=== PATIENT | male | born 1965 | race Caucasian/White ===

== ENCOUNTER → 2018-05-11 | Day surgery (SDC) | payer MEDICARE ==
[2018-05-04 13:25] LABS: APPEARANCE,URINE CLEAR; BILIRUBIN,URINE NEGATIVE (NEGATIVE); COLOR,URINE STRAW; GLUCOSE, URINE NEGATIVE (NEGATIVE); KETONES,URINE NEGATIVE (NEGATIVE); LEUKOCYTE ESTERASE,URINE NEGATIVE (NEGATIVE); NITRITE,URINE NEGATIVE (NEGATIVE); PROTEIN,URINE NEGATIVE (NEGATIVE); URINE SPECIFIC GRAVITY 1.006; UROBILINOGEN,URINE NEGATIVE mg/dL (<2.0)
[2018-05-04 14:08] LABS: HEMATOCRIT 35.6 % (37.9-51.0); HEMOGLOBIN 11.9 g/dL (13.5-17.0); MEAN CORPUSCULAR HEMOGLOBIN 27.8 pg (27.0-33.4); MEAN CORPUSCULAR HGB CONC 33.5 g/dL (32.0-36.0); MEAN CORPUSCULAR VOLUME 83 fl (80-97); PLATELET COUNT 275 10^3/uL (150-450); RED BLOOD COUNT 4.28 10^6/uL (4.35-5.55); RED CELL DISTRIBUTION WIDTH 17.3 % (11.5-14.0); WHITE BLOOD COUNT 7.1 10^3/uL (4.0-10.5)
[2018-05-04 14:15] LABS: INTERNATIONAL RATION (INR) 0.86; PARTIAL THROMBOPLASTIN TIME 33.2 SEC (23.5-35.8); PROTHROMBIN TIME 12.2 SEC (11.4-15.4)
--- NOTE | 2018-05-04 19:56 | EKG REPORT ---
SEVERITY:- ABNORMAL ECG - SINUS RHYTHM LEFT ANTERIOR FASCICULAR BLOCK : Confirmed by: Jimmy Holbrook MD 04-May-2018 19:56:24
[~2018-05-11] MED LIST: CEFAZOLIN 1 GM/D5W RTU 1 GM/50 ML RTUPB IV PRN; FENTANYL CITRATE INJ/PF 100 MCG/2 ML AMPUL ONE; LACTATED RINGERS 1000 ML IV PRN; LIDOCAINE 0.5% INJ-PF (5 MG/ML) 50 ML SDV SUBCUT PRN; LIDOCAINE 1% INJ-PF (10 MG/ML) 30 ML SDV ONE; LIDOCAINE 2% INJ-PF (100 MG/5 ML) SYRINGE ONE; MIDAZOLAM 2 MG/2 ML INJ ONE; ONDANSETRON HCL INJ/PF 4 MG/2 ML SDV ONE; PROPOFOL INJ 200 MG/20 ML VIAL IV ONE
[2018-05-11 11:23] VITALS: BP 153/89
== END ==
LOC: OROUT 10:28
PROVIDERS: ATTEND Student in an Organized Health Care Education/Training Program
DX: S22.080A Wedge compression fracture of T11-T12 vertebra, initial encounter for closed fracture (principal); X58.XXXA Exposure to other specified factors, initial encounter; I44.4 Left anterior fascicular block; Z53.9 Procedure and treatment not carried out, unspecified reason; Z79.01 Long term (current) use of anticoagulants
CPT/HCPCS: 93005; 36415; 85027; 85610; 85730; 81001; 93010; J0690; J2001; J2250; J2405; J2704; J3010; J3490

== ENCOUNTER 2018-06-08 08:37 | Day surgery (SDC) | payer MEDICARE ==
[2018-06-07 11:03] LABS: HEMATOCRIT 37.1 % (37.9-51.0); HEMOGLOBIN 12.3 g/dL (13.5-17.0); MEAN CORPUSCULAR HGB CONC 33.1 g/dL (32.0-36.0); MEAN CORPUSCULAR VOLUME 88 fl (80-97); PLATELET COUNT 312 10^3/uL (150-450); RED BLOOD COUNT 4.23 10^6/uL (4.35-5.55); WHITE BLOOD COUNT 6.5 10^3/uL (4.0-10.5)
[2018-06-07 11:21] LABS: INTERNATIONAL RATION (INR) 0.85
[2018-06-07 11:22] LABS: PARTIAL THROMBOPLASTIN TIME 34.7 SEC (23.5-35.8)
[2018-06-07 11:34] LABS: APPEARANCE,URINE CLEAR; BILIRUBIN,URINE NEGATIVE (NEGATIVE); COLOR,URINE STRAW; GLUCOSE, URINE NEGATIVE (NEGATIVE); KETONES,URINE NEGATIVE (NEGATIVE); LEUKOCYTE ESTERASE,URINE NEGATIVE (NEGATIVE); NITRITE,URINE NEGATIVE (NEGATIVE); PROTEIN,URINE NEGATIVE (NEGATIVE); URINE SPECIFIC GRAVITY 1.004; UROBILINOGEN,URINE NEGATIVE mg/dL (<2.0)
[2018-06-07 11:36] LABS: ANION GAP 11 (5-19); BLOOD UREA NITROGEN 15 mg/dL (7-20); CALCIUM 9.4 mg/dL (8.4-10.2); CARBON DIOXIDE 24 mmol/L (22-30); CHLORIDE 103 mmol/L (98-107); GLUCOSE 105 mg/dL (75-110); POTASSIUM 5.1 mmol/L (3.6-5.0); SODIUM 137.8 mmol/L (137-145)
--- NOTE | 2018-06-07 16:08 | EKG REPORT ---
SEVERITY:- ABNORMAL ECG - SINUS RHYTHM LEFT ANTERIOR FASCICULAR BLOCK BORDERLINE R WAVE PROGRESSION, ANTERIOR LEADS : Confirmed by: Sami Mathews 07-Jun-2018 16:07:14
[~2018-06-08 08:37] MED LIST changes: -FENTANYL CITRATE INJ/PF 100 MCG/2 ML AMPUL ONE; -LACTATED RINGERS 1000 ML IV PRN; -LIDOCAINE 2% INJ-PF (100 MG/5 ML) SYRINGE ONE; -MIDAZOLAM 2 MG/2 ML INJ ONE; -ONDANSETRON HCL INJ/PF 4 MG/2 ML SDV ONE; -PROPOFOL INJ 200 MG/20 ML VIAL IV ONE; +RINGERS SOLUTION,LACTATED 1,000 ML IV PRN
[2018-06-08] MEDS ORDERED: CEFAZOLIN 1 GM/D5W RTU 1 GM/50 ML RTUPB IV ONE (09:04)
[2018-06-08] MEDS ORDERED: FENTANYL CITRATE INJ/PF 100 MCG/2 ML AMPUL ONE (09:19)
[2018-06-08] MEDS ORDERED: PROPOFOL INJ 200 MG/20 ML VIAL IV ONE (09:20)
[2018-06-08] MEDS ORDERED: MIDAZOLAM 2 MG/2 ML INJ ONE (09:20)
[2018-06-08] MEDS ORDERED: FENTANYL CITRATE INJ/PF 100 MCG/2 ML AMPUL IV PRN ×3 (10:05)
[2018-06-08] MEDS: FENTANYL CITRATE INJ/PF 100 MCG/2 ML AMPUL ONE ×2 (10:35→10:40)
[2018-06-08] MEDS ORDERED: CEFAZOLIN INJ 1 GM VIAL ONE (10:37)
[2018-06-08] MEDS ORDERED: HYDROCODONE/ACETAMINOPHEN 5-325 MG TABLET PO PRN (10:44)
--- NOTE | 2018-06-08 10:50 | OPERATIVE REPORT E ---
Operative Report NAME: ELIJAH YEPEZ : 1965 AGE: 52Y DATE OF SURGERY: 06/08/2018 ROOM: PREOPERATIVE DIAGNOSIS: Vertebral compression fracture at T11. POSTOPERATIVE DIAGNOSIS: Vertebral compression fracture at T11. PROCEDURE PERFORMED: Balloon kyphoplasty. SURGEON: JOSEPH SABA M.D. HAND COREMAKER: None. ANESTHESIA: MAC. COMPLICATIONS: None. PROCEDURE: After obtaining informed consent advising the patient of the risks and benefits, including serious neurological injury, bleeding, infection, paralysis, allergic reaction, , or failure to adequately treat pain, he was taken to the operating room suite. He was placed comfortably in a prone position as determined by Anesthesia. He was prepped and draped. The C-arm was brought in for lateral AP visualization and draped appropriately. Beginning at the T11 level using a left peripedicular approach a suitable skin entry site was identified and anesthetized with 1% lidocaine with bicarb. A small incision was made. Express trocar was then advanced under C-arm fluoroscopic views in AP and lateral position, entering in the peripedicular approach and medializing after passing into the vertebral body, positioned medial to the medial pedicular wall. The drill was then placed and removed followed by the balloon. The procedure was then proceeded using the right peripedicular approach at the T11 level. After placement of the balloons, once the balloons were adequately inflated and sufficiently inflated, the cement mixture was then mixed and using the filler sheath beginning at the T11 level, filling was performed. A total of 2.4 mL of mixture were placed on the left side and stopped after lateral extravasation. Another 2 mL was placed on the right side with no extravasation. The T11 level had a total of 4.4 mL. After the filler tubes were removed stylettes were placed into the trocars. The cement was allowed to harden prior to removing the trocars. The region was cleansed. Sterile dressings were placed. The patient was taken to the PACU for further postoperative care and monitoring. DICTATING PHYSICIAN: JOSEPH SABA M.D. [id number] PHY#: [id number] ID: [id number] JOB#: [id number] ACCT: [id number] cc:JOSEPH SABA M.D. >
[2018-06-08] MEDS ORDERED: HYDROCODONE/ACETAMINOPHEN 5-325 MG TABLET ONE (11:23)
--- NOTE | 2018-06-08 12:10 | RADIOLOGY REPORT (SQ) ---
EXAM DESCRIPTION: T SPINE AP/LAT; NO CHG FLUORO COMPLETED DATE/TIME: 06/08/2018 11:06 am REASON FOR STUDY: KYPHO S22.088A OTH FRACTURE OF T11-T12 VERTEBRA, INIT FOR CLOS FX Z79.01 LONG TE RM (CURRENT) USE OF ANTICOAGULANTS COMPARISON: None. FLUOROSCOPY TIME: 3.7 minutes 33 digital images saved to PACS. TECHNIQUE: Intra-operative images acquired during surgical procedure to evaluate progress. NUMBER OF IMAGES: 33 digital fluoro images LIMITATIONS: None. FINDINGS: Intra procedural imaging and fluoro during kyphoplasty. Please see the operative report f or further details IMPRESSION: Intra procedural imaging and fluoro during kyphoplasty. Please see the operative report for further details COMMENT: Quality ID 145: Final reports for procedures using fluoroscopy that document radiation exp osure indices, or exposure time and number of fluorographic images (if radiation exposure indices are not available) Please consult full operative report of the attending physician for description of the procedure. TECHNICAL DOCUMENTATION: JOB ID: [id number] [employer]- All Rights Reserved Reading location - IP/workstation name: [email or web address]-[email or web address]
--- NOTE | 2018-06-08 12:10 | RADIOLOGY REPORT (SQ) ---
EXAM DESCRIPTION: T SPINE AP/LAT; NO CHG FLUORO COMPLETED DATE/TIME: 06/08/2018 11:06 am REASON FOR STUDY: KYPHO S22.088A OTH FRACTURE OF T11-T12 VERTEBRA, INIT FOR CLOS FX Z79.01 LONG TE RM (CURRENT) USE OF ANTICOAGULANTS COMPARISON: None. FLUOROSCOPY TIME: 3.7 minutes 33 digital images saved to PACS. TECHNIQUE: Intra-operative images acquired during surgical procedure to evaluate progress. NUMBER OF IMAGES: 33 digital fluoro images LIMITATIONS: None. FINDINGS: Intra procedural imaging and fluoro during kyphoplasty. Please see the operative report f or further details IMPRESSION: Intra procedural imaging and fluoro during kyphoplasty. Please see the operative report for further details COMMENT: Quality ID 145: Final reports for procedures using fluoroscopy that document radiation exp osure indices, or exposure time and number of fluorographic images (if radiation exposure indices are not available) Please consult full operative report of the attending physician for description of the procedure. TECHNICAL DOCUMENTATION: JOB ID: [id number] [employer]- All Rights Reserved Reading location - IP/workstation name: [email or web address]-[email or web address]
[2018-06-08 12:36] VITALS: BP 121/83
== END 2018-06-08 12:20 | disposition home or self-care (01) ==
LOC: OROUT 08:37
PROVIDERS: ATTEND Student in an Organized Health Care Education/Training Program
DX: S22.088S Other fracture of T11-T12 vertebra, sequela (principal); X58.XXXS Exposure to other specified factors, sequela; I10 Essential (primary) hypertension; M19.90 Unspecified osteoarthritis, unspecified site; G89.4 Chronic pain syndrome; F45.42 Pain disorder with related psychological factors; M54.5 Low back pain; M79.10 Myalgia, unspecified site; Z79.899 Other long term (current) drug therapy; Z79.1 Long term (current) use of non-steroidal anti-inflammatories (NSAID); Z87.11 Personal history of peptic ulcer disease
CPT/HCPCS: 93005; 36415 ×2; 84132; 85027; 85610; 85730; 80048; 81001; 72070; 93010; 22513; C1713; Q9966; J2250; J0690 ×2; J3010; J3490; J2704; A9270; 1936